=== PATIENT | female | born 1965 | race Caucasian/White ===

== ENCOUNTER 2021-07-06 04:36 | Emergency (ER) | payer OTHER ==
[2021-07-06 05:47] LABS: HEMOGLOBIN 12.9 gm/dl (12.3-15.3); RED BLOOD COUNT 4.29 M/UL (4.00-5.10)
[2021-07-06 06:25] LABS: BUN/CREATININE RATIO 15 (0-10)
== END 2021-07-06 06:21 | disposition home or self-care (01) ==
LOC: ER1 04:36
PROVIDERS: Physician Assistant
DX: R07.89 Other chest pain (principal); Z90.49 Acquired absence of other specified parts of digestive tract; Z88.0 Allergy status to penicillin; Z88.2 Allergy status to sulfonamides
CPT/HCPCS: 71045; 73030; 80053; 82550; 82553; 83874; 84484; 85025; 93005; 99285